=== PATIENT | male | born 1945 | race Caucasian/White ===

== ENCOUNTER 2021-04-25 13:24 | Inpatient (IN) ==
[2021-04-25] MEDS ORDERED: 0.9 % Sodium Chloride 500 ML IVC ONE (14:15)
[2021-04-25] MEDS ORDERED: Ketorolac 30 MG/ML VIAL IVP STA (14:17)
[2021-04-25 14:52] LABS: Bilirubin,Urine Negative (Negative); Blood,Urine Negative (Negative); Clarity,Urine Clear (Clear); Color,Urine Yellow (Yellow); Glucose,Urine (UA) Normal (Normal); Hyaline Casts,Urine Few per lpf (None Seen); Ketones,Urine Negative (Negative); Leukocyte Esterase,Urine Negative (Negative); Mucus,Urine Few per lpf (None-Few); Nitrite,Urine Negative (Negative); PH,Urine 6.5 pH Units (5.0-8.0); Protein,Urine 30 mg/dL (Neg-Trace); Squamous Epithelial Cell,Urine Few per hpf (None-Few); Urobilinogen,Urine Normal (Normal)
[2021-04-25 15:18] LABS: Influenza A PCR Negative (Negative); Influenza B PCR Negative (Negative); Resp. Syncytial Virus PCR Negative (Negative)
[2021-04-25 15:19] LABS: SARS-CoV-2 by PCR (In House) Negative (Negative)
[2021-04-25] MEDS ORDERED: cefTRIAXone 1,000 MG in Water for inj. (sterile) 10 ML IVP ONE (15:44)
[2021-04-25] MEDS ORDERED: Azithromycin 250 MG TABLET PO ONE (15:51)
[2021-04-25 16:15] LABS: Hematocrit 36.3 % (37.5-50.1); Hemoglobin 11.6 g/dL (12.9-16.9); Lymphocytes # 0.3 K/mcL (0.6-4.6); Mean Corpuscular Hemoglobin 32.4 pg (28.0-33.3); Mean Corpuscular Volume 101.4 fL (83.0-100.0); Mean Platelet Volume 10.6 fL (9.4-12.4); Platelet Count 215 K/mcL (140-400); Red Blood Count 3.58 M/mcL (4.19-5.50); Red Cell Distribution Width 14.5 % (11.5-14.5); White Blood Count 13.1 K/mcL (4.3-11.1)
[2021-04-25 16:25] LABS: Albumin 4.2 g/dL (3.5-5.7); Albumin/Globulin Ratio 1.6 (1.1-2.2); Bilirubin,Direct 0.3 mg/dL (0.0-0.2); Bilirubin,Indirect 0.8 mg/dL (0.0-1.0); Bilirubin,Total 1.1 mg/dL (0.3-1.0); Calcium 9.3 mg/dL (8.6-10.3); Globulin 2.7 g/dL (2.4-3.5); Potassium 4.8 mEq/L (3.5-5.1); Total Protein 6.9 g/dL (6.4-8.9); Troponin I 0.23 ng/mL (< 0.04)
[2021-04-25 16:33] LABS: Monocytes # 0.3 K/mcL (0.0-1.3); Neutrophils # 12.3 K/mcL (1.6-8.9); Platelet Estimate Normal (Normal)
[2021-04-25] MEDS ORDERED: *HR* HYDROcodone/Acet 5/325 mg TABLET PO PRN (17:27)
[2021-04-25] MEDS ORDERED: *HR* Promethazine 25 MG/ML VIAL IM PRN (17:27)
[2021-04-25] MEDS ORDERED: Ondansetron 4 MG/2 ML VIAL IVP PRN (17:27)
[2021-04-25] MEDS ORDERED: Melatonin 3 MG TABLET PO PRN (17:27)
[2021-04-25] MEDS ORDERED: Acetaminophen 325 MG TABLET PO PRN (17:27)
[2021-04-25] MEDS ORDERED: Naloxone 0.4 MG/ML INJ IVP PRN (17:27)
[2021-04-25] MEDS ORDERED: Ipratropium/Albuterol Neb 3 ML IH PRN (17:48)
[2021-04-25] MEDS ORDERED: Perflutren Lipid Microsphere 1.3 ML in 0.9 % Sodium Chloride 8.7 ML IVP PRN ×2 (17:52→18:00)
[2021-04-25] MEDS ORDERED: Ringers Solution, Lactated 500 ML IVC ONE (18:04)
[2021-04-25] MEDS: MethylPREDNISolone 40 MG/ML VIAL IVP SCH (18:46)
[2021-04-25] MEDS: Doxycycline 100 MG in 0.9 % Sodium Chloride Mini Bag 100 ML IVPB SCH (18:47)
[2021-04-26] MEDS: *HR* Heparin 5,000 UNIT/ML VIAL SQ SCH ×4 (00:38→20:33)
[2021-04-26] MEDS ORDERED: 0.9 % Sodium Chloride 1,000 ML IVC ONE (00:40)
[2021-04-26 02:45] LABS: Hematocrit 34.7 % (37.5-50.1); Mean Corpuscular HGB Conc 31.7 g/dL (31.6-35.5); Mean Corpuscular Hemoglobin 32.7 pg (28.0-33.3); Mean Corpuscular Volume 103.3 fL (83.0-100.0); Mean Platelet Volume 10.2 fL (9.4-12.4); Platelet Count 177 K/mcL (140-400); Red Blood Count 3.36 M/mcL (4.19-5.50); Red Cell Distribution Width 14.6 % (11.5-14.5); White Blood Count 16.3 K/mcL (4.3-11.1)
[2021-04-26 02:59] LABS: INR 2.1; Prothrombin Time 23.6 Seconds (9.4-12.1)
[2021-04-26 03:00] LABS: C-Reactive Protein 296 mg/L (Less than 10)
[2021-04-26 03:01] LABS: Albumin 3.9 g/dL (3.5-5.7); Albumin/Globulin Ratio 1.6 (1.1-2.2); Bilirubin,Total 0.7 mg/dL (0.3-1.0); Calcium 8.6 mg/dL (8.6-10.3); Globulin 2.5 g/dL (2.4-3.5); Magnesium 1.7 mg/dL (1.6-2.6); Potassium 5.4 mEq/L (3.5-5.1); Total Protein 6.4 g/dL (6.4-8.9)
[2021-04-26 03:21] LABS: Eosinophils # 0.3 K/mcL (0.0-0.6); Lymphocytes # 0.7 K/mcL (0.6-4.6); Monocytes # 0.3 K/mcL (0.0-1.3); Neutrophils # 14.3 K/mcL (1.6-8.9); Platelet Estimate Normal (Normal); Toxic Granulation Present (Not Present)
[2021-04-26] MEDS: MethylPREDNISolone 40 MG/ML VIAL IVP SCH ×2 (05:56→16:44)
[2021-04-26] MEDS: Doxycycline 100 MG in 0.9 % Sodium Chloride Mini Bag 100 ML IVPB SCH (05:56)
[2021-04-26] MEDS ORDERED: Vancomycin 1,750 MG/517.5 ML IV.SOLN IVPB ONE (09:00)
[2021-04-26] MEDS ORDERED: Perflutren Lipid Microsphere 1.3 ML in 0.9 % Sodium Chloride 8.7 ML IVP PRN (09:14)
[2021-04-26] MEDS: Aspirin Enteric Coated 81 MG Tablet PO SCH (09:50)
[2021-04-26] MEDS: Piperacillin/Tazobactam 3.375 GM in 0.9 % Sodium Chloride Mini Bag 100 ML IVPB SCH ×3 (09:51→23:44)
[2021-04-26 09:57] LABS: Protein/Creatinine Ratio,Urine 0.21 mg/mg (0.00-0.20); Sodium, Urine 81.7 mEq/L
[2021-04-26 10:53] LABS: Creatine Kinase 279 Units/L (30-223)
[2021-04-26 11:44] LABS: Adenovirus Not Detected (Not Detect); Bordetella Pertussis Not Detected (Not Detect); Chlamydophila pneumoniae Not Detected (Not Detect); Coronavirus 229E Not Detected (Not Detect); Coronavirus HKU1 Not Detected (Not Detect); Coronavirus NL63 Not Detected (Not Detect); Coronavirus OC43 Not Detected (Not Detect); Human Metapneumovirus Not Detected (Not Detect); Human Rhinovirus/Enterovirus Not Detected (Not Detect); Influenza A Subtype 2009 H1 Not Detected (Not Detect); Influenza B Not Detected (Not Detect); Mycoplasma pneumoniae Not Detected (Not Detect); Parainfluenza Virus 1 Not Detected (Not Detect); Parainfluenza Virus 2 Not Detected (Not Detect); Parainfluenza Virus 3 Not Detected (Not Detect); Parainfluenza Virus 4 Not Detected (Not Detect); Respiratory Syncytial Virus Not Detected (Not Detect); SARS-CoV-2 Not Detected (Not Detect)
[2021-04-26 13:41] LABS: Sodium, Urine 43.1 mEq/L
[2021-04-26] MEDS ORDERED: cefTRIAXone 1,000 MG in 0.9 % Sodium Chloride Mini Bag 100 ML IVP SCH (16:00)
[2021-04-27] MEDS: Budesonide/Formoterol 160/4.5 1 PUFF INH IH SCH ×3 (00:19→20:46)
[2021-04-27 02:05] LABS: Hematocrit 31.6 % (37.5-50.1); Hemoglobin 10.3 g/dL (12.9-16.9); Mean Corpuscular HGB Conc 32.6 g/dL (31.6-35.5); Mean Corpuscular Hemoglobin 33.2 pg (28.0-33.3); Mean Corpuscular Volume 101.9 fL (83.0-100.0); Mean Platelet Volume 10.7 fL (9.4-12.4); Platelet Count 161 K/mcL (140-400); Red Cell Distribution Width 14.6 % (11.5-14.5); White Blood Count 21.7 K/mcL (4.3-11.1)
[2021-04-27 02:25] LABS: Albumin 3.5 g/dL (3.5-5.7); Albumin/Globulin Ratio 1.3 (1.1-2.2); Bilirubin,Total 0.5 mg/dL (0.3-1.0); Calcium 8.3 mg/dL (8.6-10.3); Globulin 2.7 g/dL (2.4-3.5); Potassium 4.2 mEq/L (3.5-5.1); Total Protein 6.2 g/dL (6.4-8.9)
[2021-04-27 02:32] LABS: Neutrophils # 21.3 K/mcL (1.6-8.9); Toxic Granulation Present (Not Present)
[2021-04-27 02:33] LABS: Anisocytosis 1+ (Not Present); Platelet Estimate Normal (Normal)
[2021-04-27] MEDS: *HR* Heparin 5,000 UNIT/ML VIAL SQ SCH ×3 (05:24→21:01)
[2021-04-27] MEDS: MethylPREDNISolone 40 MG/ML VIAL IVP SCH (05:24)
[2021-04-27] MEDS: Piperacillin/Tazobactam 3.375 GM in 0.9 % Sodium Chloride Mini Bag 100 ML IVPB SCH (08:02)
[2021-04-27] MEDS ORDERED: Tiotropium 10 INH DOSE IH ONE (08:23)
[2021-04-27] MEDS: Tiotropium 10 INH DOSE IH SCH (08:26)
[2021-04-27] MEDS: Aspirin Enteric Coated 81 MG Tablet PO SCH (10:17)
[2021-04-27] MEDS ORDERED: levoFLOXacin 750 MG TABLET PO SCH (13:30)
[2021-04-28 02:42] LABS: Hematocrit 29.7 % (37.5-50.1); Mean Corpuscular HGB Conc 33.7 g/dL (31.6-35.5); Mean Corpuscular Hemoglobin 33.8 pg (28.0-33.3); Mean Corpuscular Volume 100.3 fL (83.0-100.0); Platelet Count 176 K/mcL (140-400); Red Blood Count 2.96 M/mcL (4.19-5.50); Red Cell Distribution Width 14.3 % (11.5-14.5); White Blood Count 21.5 K/mcL (4.3-11.1)
[2021-04-28 03:00] LABS: Alanine Aminotransferase 20 Units/L (7-52); Albumin 3.5 g/dL (3.5-5.7); Albumin/Globulin Ratio 1.4 (1.1-2.2); Alkaline Phosphatase 48 Units/L (34-104); Aspartate Amino Transferase 17 Units/L (13-39); BUN/Creatinine Ratio 43 (6-26); Bilirubin,Total 0.4 mg/dL (0.3-1.0); Blood Urea Nitrogen 51 mg/dL (8-23); Calcium 8.5 mg/dL (8.6-10.3); Carbon Dioxide 22 mEq/L (23-29); Chloride 105 mEq/L (98-107); Globulin 2.5 g/dL (2.4-3.5); Glucose 119 mg/dL (70-105); Osmolality,Calculated 297 (280-300); Potassium 4.2 mEq/L (3.5-5.1); Sodium 136 mEq/L (136-145); eGFR For African Americans > 60 (> 60); eGFR For Non-African Americans 59 (> 60)
[2021-04-28 04:18] LABS: Lymphocytes # 0.2 K/mcL (0.6-4.6); Monocytes # 0.4 K/mcL (0.0-1.3); Neutrophils # 20.9 K/mcL (1.6-8.9); Platelet Estimate Normal (Normal)
[2021-04-28] MEDS: *HR* Heparin 5,000 UNIT/ML VIAL SQ SCH (05:53)
[2021-04-28] MEDS: Aspirin Enteric Coated 81 MG Tablet PO SCH (08:58)
[2021-04-28] MEDS ORDERED: predniSONE 20 MG TABLET PO SCH (09:00)
[2021-04-28] MEDS: Budesonide/Formoterol 160/4.5 1 PUFF INH IH SCH (09:15)
[2021-04-28] MEDS: Tiotropium 10 INH DOSE IH SCH (09:16)
[2021-04-28 11:41] VITALS: BP 166/65; PULSE 70; TEMP 98.2; O2SAT 96
== END 2021-04-28 14:18 | disposition home or self-care (01) | DRG 871 ==
LOC: EMEROOARM 13:24 → 3ANU 18:05 → SUATTDRO 18:05 → 3ANU 18:54
PROVIDERS: ADMIT Internal Medicine; ATTEND Registered Nurse